=== PATIENT | male | born 1980 | race African-American/Black ===

== ENCOUNTER 2016-11-23 00:01 | Emergency (ER) | payer SELFPAY ==
[~2016-11-23] VITALS: Ht 170.2 cm; Wt 84.8 kg
[2016-11-23 00:28] VITALS: BP 139/72
--- NOTE | 2016-11-23 01:03 | PHYS DOC ---
Past Medical History Past Medical History: A-Fib Past Surgical History: No Surgical History Additional Information: 0.5 PPD Alcohol Use: Occasionally Drug Use: Marijuana Adult General Chief Complaint Chief Complaint: Palpitations [facility] HPI 36 year old male who has history of atrial fibrillation in the past that was prescribes her relative therapy but currently states he is not compliant who presents with approximately 30 minutes of palpitations prior to arrival. Patient states he was ingesting caffeine as he works nights and developed an episode of palpitations. Currently, upon arrival, the patient states he is having no palpitations at this time. He denies any chest pain or shortness of breath. He is fully alert and oriented and does not appear to be in any distress at this time. He is nontoxic and afebrile upon arrival. Patient has a normal sinus rhythm on the monitor. He denies any significant history of health problems. He denies any drugs or alcohol use. Review of Systems Review of Systems Constitutional: Denies fever or chills [] Eyes: Denies change in visual acuity, redness, or eye pain [] HENT: Denies nasal congestion or sore throat [] Respiratory: Denies cough or shortness of breath [] Cardiovascular: No additional information not addressed in HPI [] GI: Denies abdominal pain, nausea, vomiting, bloody stools or diarrhea [] : Denies dysuria or hematuria [] Musculoskeletal: Denies back pain or joint pain [] Integument: Denies rash or skin lesions [] Neurologic: Denies headache, focal weakness or sensory changes [] Endocrine: Denies polyuria or polydipsia [] Allergies Allergies Allergies Coded Allergies Type Severity Reaction Last Updated Verified No Known Drug Allergies 11/23/16 No Physical Exam Physical Exam Constitutional: Well developed, well nourished, no acute distress, non-toxic appearance. [] HENT: Normocephalic, atraumatic, bilateral external ears normal, oropharynx moist, no oral exudates, nose normal. [] Eyes: PERRLA, EOMI, conjunctiva normal, no discharge. [] Neck: Normal range of motion, no tenderness, supple, no stridor. [] Cardiovascular:Heart rate regular rhythm, no murmur [] Lungs & Thorax: Bilateral breath sounds clear to auscultation [] Abdomen: Bowel sounds normal, soft, no tenderness, no masses, no pulsatile masses. [] Skin: Warm, dry, no erythema, no rash. [] Back: No tenderness, no CVA tenderness. [] Extremities: No tenderness, no cyanosis, no clubbing, ROM intact, no edema. [] Neurologic: Alert and oriented X 3, normal motor function, normal sensory function, no focal deficits noted. [] Psychologic: Affect normal, judgement normal, mood normal. [] Current Patient Data Vital Signs Vital Signs Date Time Temp Pulse Resp B/P (MAP) Pulse Ox O2 Delivery O2 Flow Rate FiO2 11/23/16 00:28 97.9 85 18 139/72 (94) 99 Room Air 97.9 EKG EKG EKG as interpreted by me reveals a sinus rhythm with a rate of 70 bpm. There is no acute injury pattern. Intervals are normal. Radiology/Procedures Radiology/Procedures [] Course & Med Decision Making Course & Med Decision Making Pertinent Labs and Imaging studies reviewed. (See chart for details) This 36-year-old male who's having history of palpitations was observed in the department for over an hour with no change in rhythm. The patient remained in normal sinus rhythm the entire time while he is in the department. His EKG reveals a normal sinus rhythm with no other findings. I counseled him to limit his caffeine intake. A work note was provided. He'll follow closely with his primary care doctor in the next several days with strict instruction to return if he develops any return of his palpitations. Term precautions were provided by the patient. Dragon Disclaimer Dragon Disclaimer This electronic medical record was generated, in whole or in part, using a voice recognition dictation system. Departure Departure Impression: Primary Impression: Palpitations Disposition: 01 HOME, SELF-CARE Condition: STABLE Referrals: NO PCP (PCP) Patient Instructions: Palpitations, [id number] Additional Instructions: Please follow up with your primary doctor in the next 2-3 days regarding your recent palpitations. Return to the ER if you develop any worsening of your symptoms or if your symptoms should return. Return to the ER immediately if you develop any worsening of your symptoms. MARIO MENDEZ DO November 23, 2016 01:03
--- NOTE | 2016-11-23 07:28 | EKG ---
[facility] [address] [place] [address] Test Date: 2016-11-23 Test Time: 00:28:36 Pat Name: MARVA LOVELL Department: Room: Gender: M Compensation Advisor: : 1980 Requested By: MARIO MENDEZ Order Number: [id number] Reading MD: Tati Bhatt Measurements Intervals [place] Rate: 70 P: 26 VA: 142 QRS: 41 QRSD: 90 T: 14 QT: 348 QTc: 378 Interpretive Statements SINUS RHYTHM NORMAL ECG RI6.01 Unconfirmed report No previous ECG available for comparison Electronically Signed On 11-25-2016 21:45:43 CDT by Tati Bhatt
== END 2016-11-23 01:10 | disposition home or self-care (01) ==
LOC: ER 00:01
DX: R00.2 Palpitations (principal); I48.91 Unspecified atrial fibrillation; F12.10 Cannabis abuse, uncomplicated; F17.200 Nicotine dependence, unspecified, uncomplicated
CPT/HCPCS: 93005; 99283-25

== ENCOUNTER 2018-05-01 16:23 | Emergency (ER) | payer SELFPAY ==
[~2018-05-01] VITALS: Ht 170.2 cm; Wt 91.6 kg
[2018-05-01 16:25] VITALS: BP 142/75
[2018-05-01] MEDS: HYDROcodone/APAP 5/325MG 1 TAB TABLET PO ONE (17:03)
[2018-05-01] MEDS: CYCLOBENZAPRINE 10 MG TABLET. PO ONE (17:03)
[2018-05-01] MEDS: NAPROXEN 500 MG TABLET PO STA (17:04)
--- NOTE | 2018-05-01 17:06 | RAD ---
Examination: ELBOW RIGHT 3V History: RIGHT ELBOW SWELLING, DEACREASED ROM AFTER LIFTING HEAVY OBJECT X3 DAYS AGO Comparison/Correlation: None Findings: Total 3 images of the right elbow were obtained. Joint spaces are normal. No joint effusion. No fracture or bone destruction. Soft tissues are unremarkable. No degenerative change. Impression: Normal right elbow x-ray exam. Electronically signed by: Reggie Brandt MD (05/01/2018 5:03 PM) [facility]
[2018-05-01] MEDS ORDERED: NAPR-514 PO (17:33)
--- NOTE | 2018-05-01 17:33 | PHYS DOC ---
Past Medical History Past Medical History: A-Fib Past Surgical History: No Surgical History Alcohol Use: Occasionally Drug Use: Marijuana Adult General Chief Complaint Chief Complaint: ELBOW PROBLEM HPI HPI Patient is a 37 year old male who presents with a 5 out of 10 right elbow pain worse on extension and flexion of that began yesterday after he hit his elbow at a machine at work, and also hit his elbow and his scalp. Patient has not tried anything for his pain. Describes the pain as throbbing and intermittent. Review of Systems Review of Systems Constitutional: Denies fever or chills [] Musculoskeletal: Reports right elbow pain. Integument: Denies rash or skin lesions [] Neurologic: Denies headache, focal weakness or sensory changes [] All other systems were reviewed and found to be within normal limits, except as documented in this note. Current Medications Current Medications Current Medications Medications (Trade) Dose Ordered Sig/Casandra Start Time Stop Time Status Last Admin Dose Admin Acetaminophen/ Hydrocodone Bitart (Lortab 5/325) 1 tab 1X ONCE 05/01/18 17:00 05/01/18 17:01 DC 05/01/18 17:03 1 TAB Cyclobenzaprine HCl (Flexeril) 10 mg 1X ONCE 05/01/18 17:00 05/01/18 17:01 DC 05/01/18 17:03 10 MG Naproxen (Naprosyn) 500 mg 1X STAT 05/01/18 16:47 05/01/18 16:50 DC 05/01/18 17:04 500 MG Allergies Allergies Allergies Coded Allergies Type Severity Reaction Last Updated Verified No Known Drug Allergies 11/23/16 No Physical Exam Physical Exam Constitutional: Well developed, well nourished, no acute distress, non-toxic appearance. [] Skin: Warm, dry, no erythema, no rash. [] Back: No tenderness, no CVA tenderness. [] Extremities: Right elbow with no obvious deformity. Mild soft tissue swelling noted on the dorsal aspect of the elbow. Tenderness diffusely throughout the dorsal side of the elbow. Full range of motion to the elbow, adequate flexion and extension of the elbow. Adequate plantar flexion and dorsiflexion of the forearm. Adequate radial, medial, ulnar sensation to the right upper extremity. +2 right radial pulse. Cap refill less than 2 seconds the right fingers. Neurologic: Alert and oriented X 3, normal motor function, normal sensory function, no focal deficits noted. [] Psychologic: Affect normal, judgement normal, mood normal. [] Current Patient Data Vital Signs Vital Signs Date Time Temp Pulse Resp B/P (MAP) Pulse Ox O2 Delivery O2 Flow Rate FiO2 05/01/18 16:25 98.6 91 18 142/75 (97) 98 Room Air 98.6 EKG EKG [] Radiology/Procedures Radiology/Procedures []PROCEDURE: ELBOW RIGHT 3V Examination: ELBOW RIGHT 3V History: RIGHT ELBOW SWELLING, DEACREASED ROM AFTER LIFTING HEAVY OBJECT X3 DAYS AGO Comparison/Correlation: None Findings: Total 3 images of the right elbow were obtained. Joint spaces are normal. No joint effusion. No fracture or bone destruction. Soft tissues are unremarkable. No degenerative change. Impression: Normal right elbow x-ray exam. Electronically signed by: Regige Cedeño MD (05/01/2018 5:03 PM) [facility] DICTATED and SIGNED BY: REGGIE CEDEÑO MD DATE: 05/01/18 170 Course & Med Decision Making Course & Med Decision Making Pertinent Labs and Imaging studies reviewed. (See chart for details) This is a 37-year-old male patient presenting to the ED today with right elbow pain, patient hit his elbow at work as well as in his car. Right elbow x-rays interpreted by radiologist are negative for any acute findings. An Dada bandage was applied to the elbow by me, neurovascular exam is intact. Ice elevation encouraged. Naproxen for pain. Follow-up with open one week if pain continues. Staff Physician Addendum: I was working in the ER during the course of this patient's visit. I was available for consultation as needed, but I was not directly involved in the care of this patient. Dragon Disclaimer Dragon Disclaimer This electronic medical record was generated, in whole or in part, using a voice recognition dictation system. Departure Departure Impression: Primary Impression: Contusion of right elbow Disposition: 01 HOME, SELF-CARE Condition: STABLE Referrals: NO PCP (PCP) ALECIA BELL II, MD Follow-up in 1-2 weeks Patient Instructions: Contusion, [id number] Additional Instructions: You have right elbow contusion. Your right elbow x-rays are negative for any acute findings. Ice elevate the elbow. Take the prescribed medications as needed for pain. Follow-up with the provided orthopedic doctor or your own doctor as needed in 1-2 weeks. Scripts Naproxen (NAPROXEN) 500 Mg Tablet 1 TAB PO BID, #60 TAB 1 Refill Prov: ABHINAV HANCOCK APRN 05/01/18 Problem Qualifiers Primary Impression: Contusion of right elbow Encounter type: initial encounter Qualified Codes: S50.01XA - Contusion of right elbow, initial encounter ABHINAV HANCOCK APRN May 01, 2018 17:33 BHARAT DUQUE MD May 01, 2018 17:51
== END 2018-05-01 17:41 | disposition home or self-care (01) ==
LOC: ER 16:23
DX: S50.01XA Contusion of right elbow, initial encounter (principal); I48.91 Unspecified atrial fibrillation; W31.89XA Contact with other specified machinery, initial encounter; Y93.89 Activity, other specified; Y92.89 Other specified places as the place of occurrence of the external cause; Y99.0 Civilian activity done for income or pay
CPT/HCPCS: 73080; 99284

== ENCOUNTER 2018-08-18 18:24 | Emergency (ER) | payer SELFPAY ==
[~2018-08-18] VITALS: Ht 170.2 cm; Wt 99.8 kg
[~2018-08-18 18:24] MED LIST: NAPR-514 PO
[2018-08-18] MEDS ORDERED: IV NORMAL SALINE 1000ML BAG 1,000 ML IV ONE (19:00)
[2018-08-18 19:03] LABS: BASO % 1 % (0-3); EOS # 0.1 x10^3/uL (0.0-0.7); EOS % 2 % (0-3); HEMATOCRIT 39.2 % (39.0-53.0); HEMOGLOBIN 12.6 g/dL (13.0-17.5); LYMPH # 2.4 x10^3/uL (1.0-4.8); LYMPH % 39 % (24-48); MEAN CORPUSCULAR HEMOGLOBIN 27 pg (25-35); MEAN CORPUSCULAR HGB CONC 32 g/dL (31-37); MEAN CORPUSCULAR VOLUME 83 fL (79-100); MONO # 0.5 x10^3/uL (0.0-1.1); MONO % 8 % (0-9); NEUT # 3.2 x10^3uL (1.8-7.7); NEUT % 50 % (31-73); PLATELET COUNT 280 x10^3/uL (140-400); RED BLOOD COUNT 4.71 x10^6/uL (4.30-5.70); RED CELL DISTRIBUTION WIDTH 14.3 % (11.5-14.5); WHITE BLOOD COUNT 6.3 x10^3/uL (4.0-11.0)
[2018-08-18 19:11] LABS: CALCIUM 9.2 mg/dL (8.5-10.1); CREATININE 1.4 mg/dL (0.7-1.3); POTASSIUM 3.5 mmol/L (3.5-5.1)
--- NOTE | 2018-08-18 19:12 | PHYS DOC ---
Past Medical History Past Medical History: A-Fib Past Surgical History: No Surgical History Alcohol Use: Occasionally Drug Use: Marijuana Adult General Chief Complaint Chief Complaint: ALTERED MENTAL STATUS HPI HPI Patient is a 37 year old [male presenting with primarily I am was altered mental status apparently smokes and PCP according to the paramedics just prior to them picking him up girlfriend called because he was acting erratically and agitated required restraints on arrival apparently he went out to smoke some sort of a cigarette and then he came back acting this way. Review of Systems Review of Systems History limited by the patient's agitation Current Medications Current Medications Current Medications Medications (Trade) Dose Ordered Sig/Casandra Start Time Stop Time Status Last Admin Dose Admin Lorazepam (Ativan) 2 mg 1X ONCE 08/18/18 19:00 08/18/18 19:01 DC 08/18/18 19:12 2 MG Sodium Chloride 1,000 ml @ 1,000 mls/hr 1X ONCE 08/18/18 19:00 08/18/18 19:59 DC 08/18/18 19:12 1,000 MLS/HR Allergies Allergies Allergies Coded Allergies Type Severity Reaction Last Updated Verified No Known Drug Allergies 11/23/16 No Physical Exam Physical Exam Constitutional: Well developed, agitated HENT: Normocephalic, atraumatic, bilateral external ears normal, oropharynx moist, no oral exudates, nose normal. [] Eyes: Pupils dilated, EOMI, conjunctiva normal, no discharge. [] Neck: Normal range of motion, no tenderness, supple, no stridor. [] Cardiovascular: Tachycardic Lungs & Thorax: Bilateral breath sounds clear to auscultation [] Abdomen: Bowel sounds normal, soft, no tenderness, no masses, no pulsatile masses. [] Skin: Warm, dry, no erythema, no rash. [] Skin tag on the back of the head Back: No tenderness, no CVA tenderness. [] Extremities: No tenderness, no cyanosis, no clubbing, ROM intact, no edema. [] Neurologic: Alert and oriented X 3, normal motor function, normal sensory function, no focal deficits noted. [] Psychologic: Agitated but redirectable verbally Current Patient Data Vital Signs Vital Signs Date Time Temp Pulse Resp B/P (MAP) Pulse Ox O2 Delivery O2 Flow Rate FiO2 08/18/18 18:24 99.6 131 20 139/93 (108) 96 Room Air 99.6 Lab Values Laboratory Tests Test 08/18/18 18:55 White Blood Count 6.3 x10^3/uL (4.0-11.0) Red Blood Count 4.71 x10^6/uL (4.30-5.70) Hemoglobin 12.6 g/dL (13.0-17.5) L Hematocrit 39.2 % (39.0-53.0) Mean Corpuscular Volume 83 fL (79-100) Mean Corpuscular Hemoglobin 27 pg (25-35) Mean Corpuscular Hemoglobin Concent 32 g/dL (31-37) Red Cell Distribution Width 14.3 % (11.5-14.5) Platelet Count 280 x10^3/uL (140-400) Neutrophils (%) (Auto) 50 % (31-73) Lymphocytes (%) (Auto) 39 % (24-48) Monocytes (%) (Auto) 8 % (0-9) Eosinophils (%) (Auto) 2 % (0-3) Basophils (%) (Auto) 1 % (0-3) Neutrophils # (Auto) 3.2 x10^3uL (1.8-7.7) Lymphocytes # (Auto) 2.4 x10^3/uL (1.0-4.8) Monocytes # (Auto) 0.5 x10^3/uL (0.0-1.1) Eosinophils # (Auto) 0.1 x10^3/uL (0.0-0.7) Basophils # (Auto) 0.0 x10^3/uL (0.0-0.2) Sodium Level 144 mmol/L (136-145) Potassium Level 3.5 mmol/L (3.5-5.1) Chloride Level 105 mmol/L (98-107) Carbon Dioxide Level 27 mmol/L (21-32) Anion Gap 12 (6-14) Blood Urea Nitrogen 12 mg/dL (8-26) Creatinine 1.4 mg/dL (0.7-1.3) H Estimated GFR (Cockcroft-Gault) 69.0 BUN/Creatinine Ratio 9 (6-20) Glucose Level 177 mg/dL (70-99) H Calcium Level 9.2 mg/dL (8.5-10.1) Total Bilirubin 0.2 mg/dL (0.2-1.0) Aspartate Amino Transferase (AST) 23 U/L (15-37) Alanine Aminotransferase (ALT) 24 U/L (16-63) Alkaline Phosphatase 65 U/L (46-116) Total Protein 8.0 g/dL (6.4-8.2) Albumin 3.9 g/dL (3.4-5.0) Albumin/Globulin Ratio 1.0 (1.0-1.7) Ethyl Alcohol Level < 10 mg/dL (0-10) Laboratory Tests 08/18/18 18:55 Laboratory Tests 08/18/18 18:55 EKG EKG [] Radiology/Procedures Radiology/Procedures [] Course & Med Decision Making Course & Med Decision Making Pertinent Labs and Imaging studies reviewed. (See chart for details) []labs look pretty good after ativan much calmer feels good d/c stable at 830 pm probable pcp intoxication based on hx Dragon Disclaimer Dragon Disclaimer This electronic medical record was generated, in whole or in part, using a voice recognition dictation system. Departure Departure Impression: Primary Impression: Drug abuse Disposition: 01 HOME, SELF-CARE Condition: STABLE Patient Instructions: Drug Abuse, FAQs BHARAT DUQUE MD Aug 18, 2018 19:12
[2018-08-18 19:17] LABS: TOTAL BILIRUBIN 0.2 mg/dL (0.2-1.0)
[2018-08-18 19:31] LABS: ALBUMIN 3.9 g/dL (3.4-5.0)
[2018-08-18 19:57] VITALS: BP 133/69
== END 2018-08-18 20:32 | disposition home or self-care (01) ==
LOC: ER 18:24
DX: F16.10 Hallucinogen abuse, uncomplicated (principal); R45.1 Restlessness and agitation; R00.0 Tachycardia, unspecified; R41.82 Altered mental status, unspecified; I48.91 Unspecified atrial fibrillation
CPT/HCPCS: 36415; 80053; 85025; 96361; 96374; 99283; G0480; J2060; J7030; 99284